=== PATIENT | male | born 2000 | race Caucasian/White ===

== ENCOUNTER 2022-05-13 16:06 | Emergency (ER) | payer SELFPAY ==
[~2022-05-13] VITALS: Ht 170.2 cm; Wt 88.0 kg
[2022-05-13] MEDS ORDERED: KETOROLAC 60MG/2ML VIAL IM STA (17:39)
[2022-05-13 17:51] VITALS: BP 141/72
[2022-05-13] MEDS ORDERED: IBUP-2029 PO (18:52)
== END 2022-05-13 19:24 | disposition home or self-care (01) ==
LOC: ER 16:06
DX: S93.691A Other sprain of right foot, initial encounter (principal); W17.89XA Other fall from one level to another, initial encounter; Y93.89 Activity, other specified; Y92.89 Other specified places as the place of occurrence of the external cause; Y99.8 Other external cause status
CPT/HCPCS: 73610; 73630; 96372; 99284; J1885